=== PATIENT | female | born 1995 | race Two or more races ===

== ENCOUNTER 2021-05-14 11:57 | Observation (INO) | payer SELFPAY ==
[2021-05-14] MEDS ORDERED: IV RINGERS,LACTATED 1000ML 1,000 ML IV SCH (12:15)
[2021-05-14 13:12] LABS: BILIRUBIN,URINE NEGATIVE (NEG); CLARITY,URINE CLEAR; COLOR,URINE YELLOW; NITRITE,URINE NEGATIVE (NEG); PROTEIN,URINE NEGATIVE (NEG-TRACE); UROBILINOGEN,URINE 0.2 mg/dL (0.2 mg/dL)
[2021-05-14 13:26] LABS: AMORPHOUS SEDIMENT,UR PRESENT /HPF
[2021-05-14 13:27] LABS: BACTERIA,URINE FEW /HPF (0-FEW); RBC,URINE 0 /HPF (0-2)
== END 2021-05-14 15:00 | disposition home or self-care (01) ==
LOC: 3 SO LND 11:57
PROVIDERS: ADMIT Obstetrics & Gynecology; ATTEND Obstetrics & Gynecology
DX: O62.9 Abnormality of forces of labor, unspecified (principal); O48.0 Post-term pregnancy; Z3A.40 40 weeks gestation of pregnancy
CPT/HCPCS: 59025; 81001; G0378; G0379

== ENCOUNTER 2021-05-14 17:21 | Inpatient (IN) | payer SELFPAY ==
[~2021-05-14] VITALS: Ht 152.4 cm; Wt 66.1 kg
[2021-05-14 17:30] VITALS: BP 127/79
[2021-05-14] MEDS ORDERED: OXYTOCIN 30 UNIT/500 ML PREMIX 500 ML IV PRN (17:45)
[2021-05-14] MEDS ORDERED: TERBUTALINE 1 MG/ML VIAL. SQ PRN (17:45)
[2021-05-14] MEDS ORDERED: LIDOCAINE 1% PF 30 ML VIAL. INJ PRN (17:45)
[2021-05-14] MEDS ORDERED: 0.9 % SODIUM CHLORIDE 10 ML DISP.SYRIN. IV PRN (17:45)
[2021-05-14] MEDS ORDERED: BUTORPHANOL 2 MG/ML VIAL. IVP PRN (17:45)
[2021-05-14] MEDS ORDERED: PENICILLIN G K 5,000,000 UNIT in IV DEXTROSE 5% 100ML 100 ML IV ONE (18:00)
[2021-05-14 18:23] LABS: BASO % 0 % (0-3); EOS % 0 % (0-3); HEMATOCRIT 38.8 % (36.0-47.0); HEMOGLOBIN 13.3 g/dL (12.0-15.5); LYMPH # 0.9 x10^3/uL (1.0-4.8); LYMPH % 7 % (24-48); MEAN CORPUSCULAR HEMOGLOBIN 30 pg (25-35); MEAN CORPUSCULAR HGB CONC 34 g/dL (31-37); MEAN CORPUSCULAR VOLUME 87 fL (79-100); MONO # 0.9 x10^3/uL (0.0-1.1); MONO % 7 % (0-9); NEUT # 10.9 x10^3/uL (1.8-7.7); NEUT % 85 % (31-73); PLATELET COUNT 161 x10^3/uL (140-400); RED BLOOD COUNT 4.47 x10^6/uL (3.50-5.40); RED CELL DISTRIBUTION WIDTH 14.8 % (11.5-14.5); WHITE BLOOD COUNT 12.8 x10^3/uL (4.0-11.0)
[2021-05-14] MEDS: IV RINGERS,LACTATED 1000ML 1,000 ML IV SCH ×2 (18:27→20:03)
[2021-05-14 19:21] LABS: % BANDS 4 % (0-9); % LYMPHS 8 % (24-48); % MONOS 3 % (0-10); % SEGS 85 % (35-66)
[2021-05-14 19:22] LABS: PLT ESTIMATE ADEQUATE (ADEQUATE)
[2021-05-14] MEDS: ACETAMINOPHEN 325 MG TABLET. PO PRN (20:02)
[2021-05-14] MEDS ORDERED: GENTAMICIN SULFATE 230 MG in IV NORMAL SALINE 100ML 100 ML IV SCH (21:00)
--- NOTE | 2021-05-14 21:20 | PDOC1 ---
CORE ANALYST H&P Date of Admission: Date of Admission: May 14, 2021 at 17:43 History of Present Illness: EDC: 05/11/21 LMP: 08/04/20 25y @ 40.3 by L=19 presents for ctxs and LOF. The pt presented earlier in the day with ctxs. She remained unchanged at 1 cm so she was d/c home. When she returned she was found to be ruptured and now dilated to 2 cm. At 1928 the pt spiked a fever of 101.0. The fever persisted despite Tylenol so her abx were switched to Amp/Gent for IAI. PMH: Cholesterol PSH: Denies Meds: PNV All: NKDA OBHx: G1 SH: no tob, no EtOH FH: noncontributory Medications: Meds: Current Medications Medications (Trade) Dose Ordered Sig/Ena Route PRN Reason Start Time Stop Time Status Last Admin Dose Admin Ringer's Solution 1,000 ml @ 125 mls/hr Q8H IV 05/14/21 17:45 05/14/21 20:03 Acetaminophen (Tylenol) 650 mg PRN Q6HRS PRN PO MILD PAIN / TEMP > 100.3'F 05/14/21 17:45 05/14/21 20:02 Penicillin G Potassium [id number] unit/Dextrose 100 ml @ 100 mls/hr 1X ONCE IV 05/14/21 18:00 05/14/21 18:59 DC 05/14/21 18:28 Gentamicin Sulfate 230 mg/ Sodium Chloride 105.75 ml @ 105.75 mls/hr Q24H IV 05/14/21 21:00 05/14/21 21:05 Allergies: Coded Allergies: No Known Drug Allergies (Unverified , 05/14/21) Physical Exam: Vital Signs: Vital Signs Date Time Temp Pulse Resp B/P (MAP) Pulse Ox O2 Delivery O2 Flow Rate FiO2 05/14/21 17:30 99.7 99.7 05/14/21 17:30 130 20 127/79 (95) Room Air PE: GENERAL: No apparent distress. Alert and oriented. HEENT: Head normocephalic, atraumatic. NECK: Supple LUNGS: Clear to auscultation. HEART: RRR, S1, S2 present, pulses intact ABDOMEN: Soft, positive bowel sounds. EXTREMITIES: No cyanosis or edema. NEUROLOGIC: Normal speech, normal tone PSYCHIATRIC: Normal affect, normal mood. SKIN: No ulceration. FHT: 150s +acels/no decels/mLTV [place]: 3-4 min SVE: 2/70/-3 Labs: Laboratory Tests Test 05/14/21 18:08 05/14/21 18:12 White Blood Count 12.8 x10^3/uL (4.0-11.0) H Red Blood Count 4.47 x10^6/uL (3.50-5.40) Hemoglobin 13.3 g/dL (12.0-15.5) Hematocrit 38.8 % (36.0-47.0) Mean Corpuscular Volume 87 fL (79-100) Mean Corpuscular Hemoglobin 30 pg (25-35) Mean Corpuscular Hemoglobin Concent 34 g/dL (31-37) Red Cell Distribution Width 14.8 % (11.5-14.5) H Platelet Count 161 x10^3/uL (140-400) Neutrophils (%) (Auto) 85 % (31-73) H Lymphocytes (%) (Auto) 7 % (24-48) L Monocytes (%) (Auto) 7 % (0-9) Eosinophils (%) (Auto) 0 % (0-3) Basophils (%) (Auto) 0 % (0-3) Neutrophils # (Auto) 10.9 x10^3/uL (1.8-7.7) H Lymphocytes # (Auto) 0.9 x10^3/uL (1.0-4.8) L Monocytes # (Auto) 0.9 x10^3/uL (0.0-1.1) Eosinophils # (Auto) 0.0 x10^3/uL (0.0-0.7) Basophils # (Auto) 0.0 x10^3/uL (0.0-0.2) Segmented Neutrophils % 85 % (35-66) H Band Neutrophils % 4 % (0-9) Lymphocytes % 8 % (24-48) L Monocytes % 3 % (0-10) Platelet Estimate Adequate (ADEQUATE) Treponema pallidum Antibody Nonreactive (Nonreactive) SARS-CoV-2 Antigen (Rapid) Negative (NEGATIVE) Laboratory Tests 05/14/21 18:08 Laboratory Tests 05/14/21 18:08 Assessment & Plan: A/P 25y @ 40.2 by L=19 1.) SROM augmented with Pit 2.) IAI started on Amp/Gent 3.) Condyloma acuminata - should not affect delivery 4.) Flu vaccine given 11/24/20 5.) TDAP given 04/22/21 6.) Fetus cat I FHT 7.) GBSuria PCN switched to GOKUL Short MD May 14, 2021 21:20
[2021-05-14] MEDS ORDERED: PENICILLIN G K 2,500,000 UNIT in IV DEXTROSE 5% 50 ML IV SCH (22:00)
[2021-05-15] MEDS: AMPICILLIN SODIUM 2 GM in IV NORMAL SALINE 100ML 100 ML IV SCH ×2 (00:10→05:56)
[2021-05-15] MEDS: IV RINGERS,LACTATED 1000ML 1,000 ML IV SCH (02:04)
[2021-05-15] MEDS: ACETAMINOPHEN 325 MG TABLET. PO PRN (02:10)
[2021-05-15] MEDS: BUTORPHANOL 2 MG/ML VIAL. IVP PRN ×3 (03:20→07:36)
--- NOTE | 2021-05-15 09:18 | PDOC ---
PIN DRAFTER OPERATOR PROGRESS NOTE Date of Service: DATE: 05/15/21 TIME: 09:17 Subjective: Pt feeling ctxs. Denies BEJARANO, changes in vision or abd pain Objective: Vital Signs: Vital Signs Date Time Temp Pulse Resp B/P (MAP) Pulse Ox O2 Delivery O2 Flow Rate FiO2 05/14/21 17:30 99.7 130 20 127/79 (95) Room Air 99.7 Vital Signs Date Time Temp Pulse Resp B/P (MAP) Pulse Ox O2 Delivery O2 Flow Rate FiO2 05/15/21 07:36 18 05/15/21 03:20 Room Air 05/14/21 17:30 99.7 99.7 05/14/21 17:30 130 127/79 (95) Labs: Laboratory Tests Test 05/14/21 18:08 05/14/21 18:12 White Blood Count 12.8 x10^3/uL (4.0-11.0) H Red Blood Count 4.47 x10^6/uL (3.50-5.40) Hemoglobin 13.3 g/dL (12.0-15.5) Hematocrit 38.8 % (36.0-47.0) Mean Corpuscular Volume 87 fL (79-100) Mean Corpuscular Hemoglobin 30 pg (25-35) Mean Corpuscular Hemoglobin Concent 34 g/dL (31-37) Red Cell Distribution Width 14.8 % (11.5-14.5) H Platelet Count 161 x10^3/uL (140-400) Neutrophils (%) (Auto) 85 % (31-73) H Lymphocytes (%) (Auto) 7 % (24-48) L Monocytes (%) (Auto) 7 % (0-9) Eosinophils (%) (Auto) 0 % (0-3) Basophils (%) (Auto) 0 % (0-3) Neutrophils # (Auto) 10.9 x10^3/uL (1.8-7.7) H Lymphocytes # (Auto) 0.9 x10^3/uL (1.0-4.8) L Monocytes # (Auto) 0.9 x10^3/uL (0.0-1.1) Eosinophils # (Auto) 0.0 x10^3/uL (0.0-0.7) Basophils # (Auto) 0.0 x10^3/uL (0.0-0.2) Segmented Neutrophils % 85 % (35-66) H Band Neutrophils % 4 % (0-9) Lymphocytes % 8 % (24-48) L Monocytes % 3 % (0-10) Platelet Estimate Adequate (ADEQUATE) Treponema pallidum Antibody Nonreactive (Nonreactive) SARS-CoV-2 Antigen (Rapid) Negative (NEGATIVE) Laboratory Tests 05/14/21 18:08 Laboratory Tests 05/14/21 18:08 Physical Exam: GENERAL: No apparent distress. Alert and oriented. HEENT: Head normocephalic, atraumatic. NECK: Supple LUNGS: Clear to auscultation. HEART: RRR, S1, S2 present, pulses intact ABDOMEN: Soft, positive bowel sounds. EXTREMITIES: No cyanosis or edema. NEUROLOGIC: Normal speech, normal tone PSYCHIATRIC: Normal affect, normal mood. SKIN: No ulceration. FHT: 150s +acels/small variable decels with occ ctxs/mLTV [place]: 1-2 min SVE: 9/C/-1 Assessment & Plan: A/P 25y @ 40.3 by L=19 1.) SROM Pit at 12U 2.) IAI on Amp/Gent 3.) GHTN no s/s of preeclampsia 4.) Condyloma acuminata - should not affect delivery 5.) Flu vaccine given 11/24/20 6.) TDAP given 04/22/21 7.) Fetus cat I FHT 8.) GBSuria on Amp GOKUL RODGERS MD May 15, 2021 09:18
[2021-05-15] MEDS ORDERED: ePHEDrine PF IN SALINE 50 MG/10 ML SYRINGE. IV ONE (11:48)
[2021-05-15] MEDS ORDERED: PHENYLEPHRINE in 0.9% NACL PF 1 MG/10 ML SYRINGE. IV ONE (11:48)
[2021-05-15] MEDS ORDERED: fentaNYL PF VIAL 100 MCG/2 ML VIAL ONE (11:48)
[2021-05-15] MEDS ORDERED: OXYTOCIN 10 UNIT/ML VIAL. ONE (11:48)
[2021-05-15] MEDS ORDERED: MORPHINE PF 10 MG/10 ML AMPUL. ONE (11:49)
[2021-05-15] MEDS ORDERED: CITRIC ACID/SODIUM CITRATE 30 ML SOLUTION. ONE ×2 (11:51→12:00)
[2021-05-15] MEDS ORDERED: CITRIC ACID/SODIUM CITRATE 30 ML SOLUTION. PO ONE (12:00)
[2021-05-15] MEDS ORDERED: ceFAZolin SODIUM IV Push 1 GM VIAL. IVP ONE (12:00)
[2021-05-15] MEDS ORDERED: ceFAZolin SODIUM IV Push 1 GM VIAL. IVP PRN (12:00)
[2021-05-15] MEDS ORDERED: ONDANSETRON PF 4 MG/2 ML VIAL. ONE (12:22)
[2021-05-15] MEDS ORDERED: OXYTOCIN 30 UNIT/500 ML PREMIX 500 ML IV PRN (13:15)
[2021-05-15] MEDS ORDERED: ACETAMINOPHEN 325 MG TABLET. PO PRN (13:15)
[2021-05-15] MEDS ORDERED: BENZOCAINE 20% TOPICAL AEROSOL SPRAY 57GM CAN. TP PRN (13:15)
[2021-05-15] MEDS ORDERED: 0.9 % SODIUM CHLORIDE 10 ML DISP.SYRIN. IV PRN (13:15)
[2021-05-15] MEDS ORDERED: MMR per PROTOCOL. MC PRN (13:15)
[2021-05-15] MEDS ORDERED: diphenhydrAMINE ORAL ELIXIR 12.5 MG/5 ML ML PO PRN (13:15)
[2021-05-15] MEDS ORDERED: TDaP (Adacel) per PROTOCOL. MC PRN (13:15)
--- NOTE | 2021-05-15 13:37 | PDOC4 ---
OPERATIVE NOTE: PreOp Dx: 1.) IUP @ 40.3 by L=19, 2.) Failure to descend, 3.) Failed vacuum, 4.) SROM, 5.) IAI, 6.) GHTN, 7.) GBSuria PostOp Dx: same Procedure: Primary LTCS Surgeon: Danni Rodgers Anesthesia: Spinal EBL: 700 cc Fluids: 600 cc UOP: 150 cc Complications: None Findings: viable female delivered at 1227. Wt 7 lb 8 oz. APGARS 8/9. Nml maternal anatomy. Cord ABG pH 7.10, BE -10. VBG pH 7.26, BE -7. Path: Cord blood, Cord ABG and placenta GOKUL RODGERS MD May 15, 2021 13:37
--- NOTE | 2021-05-15 14:15 | OP ---
DATE OF SURGERY: 05/15/2021 PREOPERATIVE DIAGNOSES: 1. Intrauterine at 40 weeks and 3 days by LMP equal to a 19-week ultrasound. 2. Failure to descend. 3. Failed vacuum. 4. Spontaneous rupture of membranes. 5. Intra-amniotic infection. 6. Gestational hypertension. 7. Urine culture positive for GBS. POSTOPERATIVE DIAGNOSES: 1. Intrauterine at 40 weeks and 3 days by LMP equal to a 19-week ultrasound. 2. Failure to descend. 3. Failed vacuum. 4. Spontaneous rupture of membranes. 5. Intra-amniotic infection. 6. Gestational hypertension. 7. Urine culture positive for GBS. PROCEDURE: Primary low transverse . SURGEON: King East MD ANESTHESIA: Spinal. ESTIMATED BLOOD LOSS: 700 mL. FLUIDS: 600 mL. URINE OUTPUT: 150 mL. COMPLICATIONS: None. FINDINGS: Viable female infant delivered at 12:27, weighing 7 pounds 8 ounces with Apgars of 8 and 9. Normal maternal anatomy noted. Cord ABG with a pH of 7.10 and a base excess of -10, a cord VBG with a pH of 7.26 and a base excess of -7. PATHOLOGY: Cord blood, cord ABG and placenta. INDICATIONS: The patient is a 25-year-old 1, para 0 who presented to Labor and Delivery at 40 weeks and 3 days by LMP equal to 19-week ultrasound with contractions and leakage of fluid. The patient had presented earlier in the day with contractions, but remained unchanged at 1 cm, so she was subsequently discharged home. When the patient returned, she was found to be ruptured and dilated 2 cm. Shortly after arrival, the patient spiked a fever of 101.0 around 19:28. So the penicillin she was placed on for the GBS found in her urine culture, was switched to ampicillin plus gentamicin. The patient was started on Pitocin for augmentation and ultimately reached complete by around 09:51, the following morning. At that point, pushing was initiated. The patient pushed for roughly an hour and a half. She had a little descent, but was mostly the baby was just developing caput. Around that time, discussion was held with the patient regarding vacuum-assisted vaginal delivery. I discussed the risk of cephalohematoma, retinal hemorrhage, scalp laceration as well as intracranial hemorrhage to the patient. I also explained that the risk of intracranial hemorrhage was very low, that of 1 in 900, equivalent to that of a . The patient was willing to proceed with a vacuum. At around 11:38, the vacuum was placed. With the next two contractions while the patient pushed, traction was placed on the vacuum. On the second contraction, the vacuum popped off. With the next contraction, pushing was performed without the vacuum. It still seemed like the baby was not making much descent and if anything, the baby seemed to be developing more caput. With the next contraction, vacuum was replaced one more time. Minimal descent was noted. And another pop off occurred. At that time, discussion was held with the patient regarding moving towards section. DESCRIPTION OF PROCEDURE: The patient was taken to the operating room where spinal anesthesia was placed without difficulty. The patient was prepped and draped in a normal sterile fashion. A Pfannenstiel skin incision was made approximately 2 cm above her pubic symphysis and carried down to the underlying layer of fascia. The fascia was then nicked in the midline. The fascial incision was then extended laterally with Armstrong scissors. Superior aspect of the fascial incision was then grasped with Meche clamps, elevated and the underlying rectus muscle was dissected off with Armstrong scissors. Attention was then turned to the inferior aspect of the fascial incision, which was grasped with Meche clamps, elevated and the underlying rectus muscle was dissected off with Armstrong scissors. At that point, the midline of the rectus muscle was identified and . Two hemostats were used to grab the peritoneum, which was entered sharply with Metzenbaum scissors. The peritoneal incision was then extended superiorly and inferiorly with good visualization of the bladder with traction and countertraction. At that point, Louie ring was placed into the abdomen to better visualize the lower uterine segment. A bladder flap was created with Metzenbaum scissors. The lower uterine segment was then incised in transverse fashion. The infant's head was then flexed and brought to the hysterotomy. The rest of the infant was delivered atraumatically. The nose and mouth were bulb suctioned. The cord was double clamped and cut. Infant was handed over to the waiting door operator. The placenta was then removed manually and cleared of all clots and debris. Uterine incision was then repaired with #1 chromic in a running locked fashion. Second layer of the same suture was used to imbricate. Good hemostasis was noted. At that point, the gutters were copiously irrigated and cleared of all clots and debris. Louie ring was then removed. The peritoneum was then reapproximated with 2-0 Vicryl in a running fashion. The muscle was reapproximated with 2-0 Vicryl in a running fashion. The fascia was then closed with 0 Vicryl in a running fashion. The skin was then closed with 3-0 Monocryl in subcuticular manner. Sponge, laps and needles were correct x 3. One gram Ancef were given prior to the procedure. The patient was taken to the recovery room in stable condition. GREGORIO DR: Wilma TID: [id number]
[2021-05-15] MEDS: KETOROLAC 30 MG/ML VIAL. IVP PRN ×2 (14:54→22:52)
[2021-05-15 16:20] VITALS: BP 89/48
[2021-05-15] MEDS ORDERED: FERROUS SULFATE 325 MG TABLET. PO SCH (17:00)
[2021-05-15 18:02] VITALS: BP 89/45
[2021-05-15 20:00] VITALS: BP 129/71
[2021-05-15] MEDS ORDERED: IV RINGERS,LACTATED 1000ML 1,000 ML IV SCH (23:00)
[2021-05-16] VITALS: BP 91/45
[2021-05-16 05:20] VITALS: BP 105/68
[2021-05-16] MEDS: KETOROLAC 30 MG/ML VIAL. IVP PRN (07:30)
[2021-05-16] MEDS ORDERED: MULTIVITAMIN with MINERAL TABLET. PO SCH (09:00)
[2021-05-16 10:30] VITALS: BP 104/62
--- NOTE | 2021-05-16 11:07 | PDOC ---
PUBLIC POLICY MEDIATOR PROGRESS NOTE Date of Service: DATE: 05/16/21 TIME: 11:06 Subjective: Pt with good pain control. Ta PO. Voiding. Minimal lochia Objective: Vital Signs: Vital Signs Date Time Temp Pulse Resp B/P (MAP) Pulse Ox O2 Delivery O2 Flow Rate FiO2 05/15/21 07:36 18 05/15/21 16:20 98.4 97 89/48 (62) 98 98.4 05/15/21 20:00 Room Air Vital Signs Date Time Temp Pulse Resp B/P (MAP) Pulse Ox O2 Delivery O2 Flow Rate FiO2 05/16/21 10:30 98.1 95 20 104/62 (76) 98.1 05/16/21 05:20 97 Room Air Physical Exam: GENERAL: No apparent distress. Alert and oriented. HEENT: Head normocephalic, atraumatic. NECK: Supple LUNGS: Clear to auscultation. HEART: RRR, S1, S2 present, pulses intact ABDOMEN: Soft, positive bowel sounds. EXTREMITIES: No cyanosis or edema. NEUROLOGIC: Normal speech, normal tone PSYCHIATRIC: Normal affect, normal mood. SKIN: No ulceration. FFNT below umb No C/C/E Inc: C/D/I, a little bit of blood in the midline Assessment & Plan: A/P 25y POD #1 s/p primary LTCS for failure to descent and failed vacuum 1.) PO doing well 2.) IAI AF since delivery 3.) GHTN BPs nml since delivery, no s/s of preeclampsia 4.) Flu vaccine given 11/24/20 5.) TDAP given 04/22/21 6.) Hgb 13.3 -> pending 7.) Cont PO care (05/20 at 2:30 pm) GOKUL RODGERS MD May 16, 2021 11:07
[2021-05-16 11:31] LABS: HEMATOCRIT 30.2 % (36.0-47.0); HEMOGLOBIN 10.2 g/dL (12.0-15.5); RED BLOOD COUNT 3.41 x10^6/uL (3.50-5.40); RED CELL DISTRIBUTION WIDTH 15.2 % (11.5-14.5)
[2021-05-16 14:50] VITALS: BP 113/71
[2021-05-16] MEDS: oxyCODONE/APAP 5/325 1 TAB TABLET PO PRN ×3 (14:57→21:43)
--- NOTE | 2021-05-16 15:52 | PDOC ---
CORRECTIONAL COOK PROGRESS NOTE Date of Service: DATE: 05/16/21 TIME: 15:51 Subjective: CTSP for fever. The pt reported to the nurse that she was feeling chills. When her temp was checked, it was found to be 101.7. Pt denies any abd or breast tenderness. Objective: Vital Signs: Vital Signs Date Time Temp Pulse Resp B/P (MAP) Pulse Ox O2 Delivery O2 Flow Rate FiO2 05/15/21 07:36 18 05/15/21 16:20 98.4 97 89/48 (62) 98 98.4 05/15/21 20:00 Room Air Vital Signs Date Time Temp Pulse Resp B/P (MAP) Pulse Ox O2 Delivery O2 Flow Rate FiO2 05/16/21 14:58 20 05/16/21 14:50 101.7 82 113/71 (85) 101.7 05/16/21 05:20 97 Room Air Labs: Laboratory Tests Test 05/16/21 10:43 White Blood Count 12.0 x10^3/uL (4.0-11.0) H Red Blood Count 3.41 x10^6/uL (3.50-5.40) L Hemoglobin 10.2 g/dL (12.0-15.5) L Hematocrit 30.2 % (36.0-47.0) L Mean Corpuscular Volume 89 fL (79-100) Mean Corpuscular Hemoglobin 30 pg (25-35) Mean Corpuscular Hemoglobin Concent 34 g/dL (31-37) Red Cell Distribution Width 15.2 % (11.5-14.5) H Platelet Count 127 x10^3/uL (140-400) L Laboratory Tests 05/16/21 10:43 Laboratory Tests 05/16/21 10:43 Physical Exam: GENERAL: No apparent distress. Alert and oriented. HEENT: Head normocephalic, atraumatic. NECK: Supple LUNGS: Clear to auscultation. HEART: RRR, S1, S2 present, pulses intact ABDOMEN: Soft, positive bowel sounds. EXTREMITIES: No cyanosis or edema. NEUROLOGIC: Normal speech, normal tone PSYCHIATRIC: Normal affect, normal mood. SKIN: No ulceration. CTAB RRR FFNT below umb Inc: C/D/I No C/C/E Assessment & Plan: A/P 25y POD #1 s/p primary LTCS for failure to descent and failed vacuum 1.) Fever suspected endometritis. No local signs (pain or tenderness of uter us, purulent drainage from the uterus). No breast tenderness or erythema. No erythema of inc. WBC 12.8 -> 12.0. Will send UA and Ucx. Had IAI during labor. Will start Amp/Gent/Clinda. 2.) IAI during labor 3.) GHTN BPs nml since delivery, no s/s of preeclampsia 4.) Flu vaccine given 11/24/20 5.) TDAP given 04/22/21 6.) Hgb 13.3 -> 10.2 7.) Cont PO care (05/20 at 2:30 pm) GOKUL RODGERS MD May 16, 2021 15:52
[2021-05-16] MEDS: CLINDAMYCIN 900MG PREMIX 50 ML IV SCH ×2 (16:14→21:34)
[2021-05-16 16:46] LABS: BILIRUBIN,URINE NEGATIVE (NEG); CLARITY,URINE CLEAR; COLOR,URINE YELLOW; NITRITE,URINE NEGATIVE (NEG); PH,URINE 7.5 (<5.0-8.0); PROTEIN,URINE NEGATIVE (NEG-TRACE)
[2021-05-16 16:51] LABS: BACTERIA,URINE 0 /HPF (0-FEW); WBC,URINE OCC /HPF (0-4)
[2021-05-16] MEDS: IBUPROFEN 400 MG TABLET. PO PRN (17:00)
[2021-05-16] MEDS: GENTAMICIN SULFATE 230 MG in IV NORMAL SALINE 100ML 100 ML IV SCH (17:00)
[2021-05-16] MEDS: AMPICILLIN SODIUM 2 GM in IV NORMAL SALINE 100ML 100 ML IV SCH (19:24)
[2021-05-16 19:30] VITALS: BP 94/52
[2021-05-17 01:00] VITALS: BP 89/55
[2021-05-17] MEDS: AMPICILLIN SODIUM 2 GM in IV NORMAL SALINE 100ML 100 ML IV SCH ×5 (01:07→23:47)
[2021-05-17] MEDS: IBUPROFEN 400 MG TABLET. PO PRN ×3 (01:07→20:35)
[2021-05-17 06:00] VITALS: BP 100/63
[2021-05-17] MEDS: oxyCODONE/APAP 5/325 1 TAB TABLET PO PRN ×4 (06:28→20:36)
[2021-05-17] MEDS: CLINDAMYCIN 900MG PREMIX 50 ML IV SCH ×3 (06:28→22:01)
[2021-05-17 08:39] VITALS: BP 115/73
[2021-05-17] MEDS: PRENATAL MULTIVITAMIN TABLET. PO SCH (09:50)
[2021-05-17 10:29] LABS: BASO % 0 % (0-3); EOS % 0 % (0-3); HEMATOCRIT 31.4 % (36.0-47.0); HEMOGLOBIN 10.7 g/dL (12.0-15.5); LYMPH % 12 % (24-48); MEAN CORPUSCULAR HEMOGLOBIN 30 pg (25-35); MEAN CORPUSCULAR HGB CONC 34 g/dL (31-37); MEAN CORPUSCULAR VOLUME 88 fL (79-100); MONO # 0.6 x10^3/uL (0.0-1.1); MONO % 7 % (0-9); NEUT # 6.8 x10^3/uL (1.8-7.7); NEUT % 81 % (31-73); PLATELET COUNT 165 x10^3/uL (140-400); RED BLOOD COUNT 3.57 x10^6/uL (3.50-5.40); RED CELL DISTRIBUTION WIDTH 14.9 % (11.5-14.5); WHITE BLOOD COUNT 8.4 x10^3/uL (4.0-11.0)
--- NOTE | 2021-05-17 11:16 | PDOC ---
EQUIPMENT MANAGER PROGRESS NOTE Date of Service: DATE: 05/17/21 TIME: 11:15 Subjective: Pt with good pain control. Ta PO. Voiding. Minimal lochia. The pt with no f/c since last night. Objective: Vital Signs: Vital Signs Date Time Temp Pulse Resp B/P (MAP) Pulse Ox O2 Delivery O2 Flow Rate FiO2 05/16/21 10:30 98.1 95 20 104/62 (76) 98.1 05/16/21 19:30 98 Room Air Vital Signs Date Time Temp Pulse Resp B/P (MAP) Pulse Ox O2 Delivery O2 Flow Rate FiO2 05/17/21 08:39 98.4 71 20 115/73 (87) 98.4 05/17/21 06:28 Room Air 05/17/21 06:00 97 Labs: Laboratory Tests Test 05/16/21 16:26 05/17/21 10:20 Urine Collection Type Unknown Urine Color Yellow Urine Clarity Clear Urine pH 7.5 (<5.0-8.0) Urine Specific [place] 1.010 (1.000-1.030) Urine Protein Negative mg/dL (NEG-TRACE) Urine Glucose (UA) Negative mg/dL (NEG) Urine Ketones (Stick) Trace mg/dL (NEG) Urine Blood Moderate (NEG) Urine Nitrite Negative (NEG) Urine Bilirubin Negative (NEG) Urine Urobilinogen Dipstick 1.0 mg/dL (0.2 mg/dL) Urine Leukocyte Esterase Negative (NEG) Urine RBC 3-5 /HPF (0-2) Urine WBC Occ /HPF (0-4) Urine Squamous Epithelial Cells Few /LPF Urine Bacteria 0 /HPF (0-FEW) White Blood Count 8.4 x10^3/uL (4.0-11.0) Red Blood Count 3.57 x10^6/uL (3.50-5.40) Hemoglobin 10.7 g/dL (12.0-15.5) L Hematocrit 31.4 % (36.0-47.0) L Mean Corpuscular Volume 88 fL (79-100) Mean Corpuscular Hemoglobin 30 pg (25-35) Mean Corpuscular Hemoglobin Concent 34 g/dL (31-37) Red Cell Distribution Width 14.9 % (11.5-14.5) H Platelet Count 165 x10^3/uL (140-400) Neutrophils (%) (Auto) 81 % (31-73) H Lymphocytes (%) (Auto) 12 % (24-48) L Monocytes (%) (Auto) 7 % (0-9) Eosinophils (%) (Auto) 0 % (0-3) Basophils (%) (Auto) 0 % (0-3) Neutrophils # (Auto) 6.8 x10^3/uL (1.8-7.7) Lymphocytes # (Auto) 1.0 x10^3/uL (1.0-4.8) Monocytes # (Auto) 0.6 x10^3/uL (0.0-1.1) Eosinophils # (Auto) 0.0 x10^3/uL (0.0-0.7) Basophils # (Auto) 0.0 x10^3/uL (0.0-0.2) Laboratory Tests 05/17/21 10:20 Laboratory Tests 05/17/21 10:20 Physical Exam: GENERAL: No apparent distress. Alert and oriented. HEENT: Head normocephalic, atraumatic. NECK: Supple LUNGS: Clear to auscultation. HEART: RRR, S1, S2 present, pulses intact ABDOMEN: Soft, positive bowel sounds. EXTREMITIES: No cyanosis or edema. NEUROLOGIC: Normal speech, normal tone PSYCHIATRIC: Normal affect, normal mood. SKIN: No ulceration. CTAB RRR FFNT below umb Inc: C/D/I No C/C/E Assessment & Plan: A/P 25y POD #2 s/p primary LTCS for failure to descent and failed vacuum 1.) PO doing well 2.) Fever suspected endometritis. WBC 12.8 -> 12.0 -> 8.4. On Amp/Gent/Clinda. Will d/c abx tomorrow morning if remain AF. UA neg. 2.) IAI during labor 3.) GHTN BPs nml since delivery, no s/s of preeclampsia 4.) Flu vaccine given 11/24/20 5.) TDAP given 04/22/21 6.) Hgb 13.3 -> 10.2 -> 10.7 7.) Cont PO care (05/20 at 2:30 pm) GOKUL RODGERS MD May 17, 2021 11:16
[2021-05-17 14:00] VITALS: BP 114/68
[2021-05-17] MEDS: GENTAMICIN SULFATE 230 MG in IV NORMAL SALINE 100ML 100 ML IV SCH (16:48)
[2021-05-17 18:09] VITALS: BP 137/84
[2021-05-17 20:30] VITALS: BP 124/82
[2021-05-17] MEDS: DOCUSATE SODIUM 100 MG CAPSULE. PO PRN (20:35)
[2021-05-18 01:00] VITALS: BP 111/64
[2021-05-18] MEDS ORDERED: MAGNESIUM HYDROXIDE 2,400 MG/30 ML ORAL.SUSP. PO PRN (01:00)
[2021-05-18] MEDS ORDERED: MAG HYDROX/ALUMINUM HYD/SIMETH 30 ML ORAL.SUSP PO PRN (01:00)
[2021-05-18 04:10] LABS: BASO % 0 % (0-3); EOS # 0.1 x10^3/uL (0.0-0.7); EOS % 1 % (0-3); HEMATOCRIT 31.5 % (36.0-47.0); HEMOGLOBIN 10.8 g/dL (12.0-15.5); LYMPH # 1.5 x10^3/uL (1.0-4.8); LYMPH % 23 % (24-48); MEAN CORPUSCULAR HEMOGLOBIN 30 pg (25-35); MEAN CORPUSCULAR HGB CONC 34 g/dL (31-37); MEAN CORPUSCULAR VOLUME 89 fL (79-100); MONO # 0.6 x10^3/uL (0.0-1.1); MONO % 9 % (0-9); NEUT # 4.2 x10^3/uL (1.8-7.7); NEUT % 66 % (31-73); PLATELET COUNT 180 x10^3/uL (140-400); RED BLOOD COUNT 3.55 x10^6/uL (3.50-5.40); RED CELL DISTRIBUTION WIDTH 14.6 % (11.5-14.5); WHITE BLOOD COUNT 6.4 x10^3/uL (4.0-11.0)
[2021-05-18] MEDS: AMPICILLIN SODIUM 2 GM in IV NORMAL SALINE 100ML 100 ML IV SCH (05:33)
[2021-05-18] MEDS: CLINDAMYCIN 900MG PREMIX 50 ML IV SCH (06:03)
[2021-05-18] MEDS: oxyCODONE/APAP 5/325 1 TAB TABLET PO PRN ×2 (06:43→16:32)
[2021-05-18] MEDS: IBUPROFEN 400 MG TABLET. PO PRN ×2 (06:43→16:32)
[2021-05-18 07:00] VITALS: BP 111/70
[2021-05-18] MEDS: DOCUSATE SODIUM 100 MG CAPSULE. PO PRN (09:27)
[2021-05-18] MEDS: PRENATAL MULTIVITAMIN TABLET. PO SCH (09:27)
[2021-05-18 12:20] VITALS: BP 109/72
[2021-05-18] MEDS ORDERED: FERR325T14 PO (13:34)
[2021-05-18] MEDS ORDERED: IBUP-1060 PO (13:34)
[2021-05-18] MEDS ORDERED: OXYC1TAB15 PO (13:34)
[2021-05-18] MEDS ORDERED: DOCU-109 PO (13:34)
--- NOTE | 2021-05-18 16:37 | NUR ---
RN reviews discharge info with pt. at this time, pt. vss, pt. states that she feels ready to go home. FOB at the baby, discussion over pp care with both mom and FOB. Nursery to come and review with pt. infant discharge instructions.
--- NOTE | 2021-05-19 17:07 | PATHOLOGY ---
[facility] Accession Number: [id number] . 01 Material submitted: . placenta - PLACENTA . 01 Clinical history: . FAILURE TO DESCEND SECTION . 02 Diagnosis: 438 gram term placenta of an estimated 40 weeks gestation with attached membranes and attached and detached segments of umbilical cord: - Acute chorioamnionitis of placental membranes and chorionic plate, advanced. - Acute umbilical arteritis, umbilical phlebitis, and focal acute funisitis. - Peripheral intervillous fibrin deposition with villous entrapment and ischemic degeneration, peripheral, focal. (JPM:dany; 05/19/2021) S 05/19/2021 1642 Local . 02 Comment: The results are telephoned to Dr. East on 05/19/2021 at 2:10 p.m. (JPM:dany; 05/19/2021) . 02 Electronically signed: . Lawson Covarrubias MD, Pathologist NPI- [id number] . 01 Gross description: . Fixative: Formalin Labeled: Placenta Specimen received: An intact geller placenta to include disc, focally detached membranes, an attached segment of umbilical cord, and 2 detached segments of umbilical cord. Dimensions: 18.0 x 17.0 x 2.5 cm membranes appearance: Smith-pink and semiopaque membrane rupture: Cannot be determined due to membrane detachment membrane insertion: Attached portion of membranes display marginal insertion Umbilical cord: The 3 segments measure: 9.0 cm, 12.0 cm, and 18.0 cm in length, and range in diameter from 1.2-2.1 cm. Umbilical cord insertion: Eccentric, 5.0 cm from the closest placental margin Number of umbilical vessels: 3 Umbilical cord appearance: Smith-white and gelatinous and displaying 3 spirals per 10 cm Trimmed placental weight: 438 g surface: Blue-fuentes and well vascularized. The amnion is partially stripped away from the chorion Maternal surface: Red-brown with intact cotyledons which appear entirely present. Abnormalities: A 1.5 x 1.0 x 1.0 cm smith-yellow indurated, peripherally located probable infarct is identified and comprises approximately 2% of the disc. . Loading Unit Operator sections are submitted as follows: A1 umbilical cord A2 membranes, rolled A3 sales training representative peripheral placenta, full-thickness section A4 sales training representative central placenta, full-thickness section A5 probable infarct (MRF; 05/18/2021) MFE/MFE 05/18/2021 1558 Local . 02 Pathologist provided ICD-10: O41.1230, O43.893, Z37.0, Z3A.38 . 02 CPT . 833351 Specimen Comment: A courtesy copy of this report has been sent to [phone] Specimen Comment: Report sent to Performed at: 01 [facility] [address], [place] [id number] MD Fab Villanueva MD Phone: [phone] Performed at: 02 [facility] [address] [place], [place] [id number] MD Lawson Covarrubias MD Phone: [phone]
--- NOTE | 2021-05-20 16:27 | DS ---
DATE OF DISCHARGE: 05/17/2021 ADMISSION DIAGNOSES: 1. Intrauterine at 40 weeks and 3 days by last menstrual period equal to a 19-week ultrasound. 2. Spontaneous rupture of membranes. 3. Condyloma acuminata. 4. Status post flu vaccine. 5. Status post Tdap. 6. Urine culture positive for group B streptococcus. DISCHARGE DIAGNOSES: 1. Intrauterine at 40 weeks and 3 days by last menstrual period equal to a 19-week ultrasound. 2. Spontaneous rupture of membranes. 3. Condyloma acuminata. 4. Status post flu vaccine. 5. Status post Tdap. 6. Urine culture positive for group B streptococcus. 7. Failure to descend. 8. Failed vacuum. 9. Intra-amniotic infection. 10. Gestational hypertension. 11. Endomyometritis. PROCEDURE: Primary low transverse . BRIEF HOSPITAL COURSE: The patient is a 25-year-old 1, para 0 who presented to Labor and Delivery at 40 weeks and 3 days by LMP equal to a 19-week ultrasound with contractions and leakage of fluid. The patient had presented earlier in the day with contractions, but remained unchanged, so was subsequently discharged home. The patient returned reporting rupture of membranes and contractions. The patient was found to be 2 cm dilated. Shortly after arrival, the patient spiked a fever of 101.0. The patient was subsequently switched from penicillin, which she was on for urine culture positive for group B strep to ampicillin plus gentamicin. The patient was also started on Pitocin for augmentation. The patient ultimately reached complete by the following morning. At that time, pushing was initiated. The patient pushed roughly for an hour and half. The patient made little descent, but it appeared that the baby was developing caput. At that time, discussion was held with the patient regarding vacuum-assisted vaginal delivery. The vacuum was attempted, but was unsuccessful, so the patient was moved to the operating room for . See operative note for full detail. After delivery, the patient was doing well until postop day #1 where she again developed a fever. The patient was restarted on antibiotics this time, clindamycin, ampicillin and gentamicin. The patient was started on a course for a little over 24 hours. The patient remained afebrile and her white count continued to decrease. Also of note, her blood pressures after delivery were all normal. By postop day #3, the patient was meeting all discharge criteria and subsequently discharged home. Of note, her hemoglobin on admission was 13.3 and after delivery, was found to be 10.2. DISCHARGE INSTRUCTIONS: The patient was told not to lift anything greater than 20 pounds, have pelvic rest for 6 weeks, not to drive on narcotics. CALL IF: The patient was to call if she had fevers, chills, nausea, vomiting, abdominal pain or any additional questions or concerns. FOLLOWUP APPOINTMENT: The patient was to follow up on 05/20/2021 at 2:30 p.m. for an incision check. DISCHARGE MEDICATIONS: The patient was given a prescription for Percocet 5, 15 pills; Motrin 800 mg, 30 pills, Colace 100 mg, 30 pills; and ferrous sulfate 325 mg, 30 pills. FERN/MELQUIADES/LIANE DR: Wilma TID: [id number]
== END 2021-05-18 16:00 | disposition home or self-care (01) | DRG 786 ==
LOC: 3 SO LND 17:21 → OBSVTOIN 17:43 → 3 SO LND 05-15 18:00
PROVIDERS: ADMIT Obstetrics & Gynecology; ATTEND Obstetrics & Gynecology
PROC: 10D00Z1 Extraction of Products of Conception, Low, Open Approach (ICD-10-PCS; principal; 2021-05-15)
DX: O99.824 Streptococcus B carrier state complicating childbirth (principal); O41.1030 Infection of amniotic sac and membranes, unspecified, third trimester, not applicable or unspecified; Z20.822 Contact with and (suspected) exposure to COVID-19; O13.4 Gestational [pregnancy-induced] hypertension without significant proteinuria, complicating childbirth; Z3A.40 40 weeks gestation of pregnancy; Z37.0 Single live birth
CPT/HCPCS: 36415; 81001; 85007; 85025; 85027; 86592; 86850; 86900; 86901; 87086; 87426; 88307; G0378; G0379; J0290; J0595; J0690; J1580; J1885; J2274; J2370; J2405; J2540; J2590; J3010; J3490; J7060; J7120; U0003; U0005